=== PATIENT | male | born 1965 | race Two or more races ===

== ENCOUNTER 2024-07-20 14:01 | Emergency (ER) | payer BC, SELFPAY ==
[2024-07-20 14:12] VITALS: BP 158/98; PULSE 100; RESP 16; TEMP 36.7; O2SAT 98; BMI 38.4
--- NOTE | 2024-07-20 14:16 | XR_ITS ---
Examination: Right knee 2 views Technique one AP lateral right knee 2 views Exam date and time: July 20, 2024 1423 hours INDICATIONS: Patient heard a pop in the knee today followed by knee pain FINDINGS: No fracture or dislocation Mild tricompartment osteoarthritis No foreign body IMPRESSION: Mild tricompartment osteoarthritis
--- NOTE | 2024-07-20 14:16 | PD.EDLOWEX ---
Lower Extremity Injury RME/HPI General Chief Complaint: Extremity Injury, Lower Stated Complaint: RIGHT KNEE PAIN Time Seen by Provider: 07/20/24 14:12 Arrival date/time: 07/20/24 14:01 RME / HPI RME / HPI Narrative: 58-year-old male patient with no significant medical history, accidentally twisted the right knee, resulting into pain after hearing a pop now patient is having difficulty ambulating due to pain. Incident happened few minutes prior to ER visit. Denies any similar episode in the past no medications taken prior to arrival. Related Data Previous Rx's ?Medication ?Instructions ?Recorded ketorolac 10 mg tablet 10 mg PO TID PRN pain #20 tabs 07/20/24 Allergies Allergy/AdvReac Type Severity Reaction Status Date / Time No Known Allergies Allergy Verified 07/20/24 14:03 Review of Systems Review of Systems Narrative Review of Systems: Review of system reviewed and within normal limits except mentioned in HPI ED Exam Narrative Physical exam: VITAL SIGNS: Reviewed. GENERAL APPEARANCE: Alert and interactive, follows commands, no acute distress, HEAD AND FACE: Non-traumatic. ENT: PERRL, pink conjunctivitis, eyelid no trauma, Mucous membrane moist. RECTAL: Deferred. GENITAL: Deferred. NEUROLOGICAL: Gross motor function intact sensory function intact, Appropriate for age. MUSCULOSKELETAL: low back nontender, full range of motion. EXTREMITIES: Right knee tenderness, no deformity no swelling no redness, full range of motion. Distal neurovascular status intact SKIN: Color pink, dry, no rash, no lacerations, no abrasions, no contusions. LYMPHATICS: Deferred. Course Quality Measures none Orders Category Date Time Status Crutches .NOW Care 07/20/24 15:39 Active XR knee limited RT 2V Stat Exams 07/20/24 14:16 Completed Ketorolac Inj [Toradol Inj] Med 07/20/24 14:16 Discontinued 30 mg IM X1 ONE Vital Signs Vital signs: Vital Signs Temperature 98.1 F 07/20/24 14:12 Pulse Rate 100 07/20/24 14:12 Respiratory Rate 16 07/20/24 14:12 Blood Pressure 158/98 H 07/20/24 14:12 Pulse Oximetry (%) 98 07/20/24 14:12 Oxygen Delivery Method Room Air 07/20/24 14:12 Extremity Injury, Lower MDM Narrative MDM Narrative:: 58-year-old male patient with no significant medical history, accidentally twisted the right knee, resulting into pain after hearing a pop now patient is having difficulty ambulating due to pain. Incident happened few minutes prior to ER visit. Denies any similar episode in the past no medications taken prior to arrival. X-ray of the knee showed tricompartmental osteoarthritis noted as read by radiologist. Patient was given a copy for him to follow-up with PCP and for referral to orthopedic surgeon. Patient was also supplied with crutches. Patient data External records reviewed:: None Clinical information provided by:: patient Social determinants that could affect healthcare access:: none Patient has the following chronic illnesses:: None How is presenting disease/condition affected by chronic disease/condition?: no chronic disease Evaluation data The following diagnostics were reviewed and interpreted by me:: radiology exam(s) Lab and/or radiology exams considered but not ordered:: None Interpretation Summary: X-ray of the knee showed tricompartment osteoarthritis. No fracture dislocation noted Medications / Prescriptions Medications or Prescriptions considered but not ordered:: None Medication administrations:: Medication Administration History Discontinued Medications Ketorolac Tromethamine (Ketorolac Inj 60 Mg/2 Ml Vial) 30 mg IM X1 ONE Stop: 07/20/24 14:17 Last Admin: 07/20/24 14:34 Dose: 30 mg Documented By: OA Toradol IM Consultations Consultation(s) initiated? (list below): No Diagnosis Extremity Injury, Lower Differential Diagnosis: other (Knee pain, knee fracture dislocation osteoarthritis of the knee) Most likely diagnosis given after review of the tests above:: Knee pain, osteoarthritis of the knee Admission Indicated Admission indicated?: not indicated Explain why admission is indicated or not indicated:: Stable Admission Request Was there a request for admission?: No Disposition Plan Disposition Plan: Discharge Discharge Attestation Discharge Attestation: The patient was given an opportunity to ask questions and understood the discharge instructions. Discharge instructions specifically effects, indications for sooner follow up or return to the emergency department, and the expected course of current diagnosis. Patient condition: Stable Discharge Plan Plan Patient Disposition: HOME (Self Care) Disposition Comment: stable Prescriptions/Referrals Prescriptions/Med Rec: New ketorolac 10 mg tablet 10 mg PO TID PRN (Reason: pain) Qty: 20 0RF Rx Instructions: maximum total duration of 5 days from all oral, intranasal, or parenteral formulations Referrals: Zoey Alvarez MD [Primary Care Provider] - In 1 week Problem List Clinical Impression: Arthritis of knee Patient/Caregiver Discharge Instructions Discharge Activity: activity as tolerated Education Materials: Knee Osteoarthritis Additional Instructions: Thank you for the opportunity for serving you today. You are stable for discharged . You are advised to: Follow-up with your PCP in 1 to 2 days as for referral to orthopedic surgeon Return to ED for worsening of symptoms Increase oral fluids Take medication as prescribed Ambulate as needed with crutches Print Language: Wolof Stand Alone Forms: Tish Award Info., Patient Portal Info Letter PA/[employer] DES[employer] ENGINEER Supervising Physician PA/[employer] DES[employer] ENGINEER Supervising Physician: MD Sofya
[2024-07-20] MEDS: KETOROLAC INJ 60 MG/2 ML VIAL 30 MG IM (14:34)
== END 2024-07-20 16:13 | disposition home or self-care (01) ==
PROVIDERS: Emergency Provider Emergency Medicine; PCP Family Medicine
DX: M17.11 Unilateral primary osteoarthritis, right knee (principal)
CPT/HCPCS: 73560; 96372; 99283; J1885